=== PATIENT | female | born 1940 | race African-American/Black ===

== ENCOUNTER 2019-02-24 12:35 | Inpatient (IN) ==
[2019-02-24] MEDS ORDERED: 0.9 % Sodium Chloride 1,000 ML IVC ONE (13:11)
[2019-02-24 13:40] LABS: Basophils % 0.2 %; Hematocrit 20.5 % (35.3-44.9); Hemoglobin 6.7 g/dL (11.5-15.4); Immature Granulocytes % 1.3 % (0-4); Lymphocytes # 2.1 K/mcL (0.6-4.6); Lymphocytes % 13.5 %; Mean Corpuscular HGB Conc 32.7 g/dL (31.6-35.5); Mean Corpuscular Hemoglobin 30.5 pg (28.0-33.3); Mean Corpuscular Volume 93.2 fL (83.0-100.0); Mean Platelet Volume 9.6 fL (9.4-12.4); Monocytes % 6.3 %; Neutrophils # 12.5 K/mcL (1.6-8.9); Nucleated Red Blood Cells 0.1 /100 WBC (0); Platelet Count 407 K/mcL (140-400); Red Cell Distribution Width 13.9 % (11.5-14.5); Segmented Neutrophils % 78.7 %; White Blood Count 15.8 K/mcL (4.3-11.1)
[2019-02-24 13:59] LABS: BUN/Creatinine Ratio 43 (6-26); Blood Urea Nitrogen 59 mg/dL (8-23); Calcium 8.7 mg/dL (8.6-10.3); Carbon Dioxide 25 mEq/L (23-29); Chloride 102 mEq/L (98-107); Glucose 169 mg/dL (70-105); Osmolality,Calculated 312 (280-300); Sodium 141 mEq/L (136-145); Troponin I < 0.03 ng/mL (< 0.04); eGFR For African Americans 46 (> 60); eGFR For Non-African Americans 38 (> 60)
--- NOTE | 2019-02-24 14:17 | Emergency Department Note ---
Disposition Clinical Impression: Low hemoglobin, Upper GI bleed, LIVE (acute kidney injury) Disposition: Admitted As Inpatient Condition: Fair Referrals: Cynthia Severino, TRANSFORMATION ANALYST [Advanced Practice Nurse] - Forms: ED Satisfaction Letter Time of Disposition: 15:30 General Adult HPI - General Chief complaint: ED Dizziness Stated complaint: Hypotension,High HR Time Seen by Provider: 02/24/19 12:38 Source: patient, family Mode of arrival: ambulatory Limitations: no limitations Nursing Notes Reviewed: Yes Vital Signs Reviewed: Yes - History of Present Illness HPI Narrative: 78-year-old female presents to the emergency department with high heart rate and low blood pressure. Says she was at a friend's house to check the blood pressure was below 100 so they told to come here for evaluation. Says she has had mild chest pain been going on for a few weeks as well as mild shortness of breath that comes and goes. Not currently having chest pain or shortness of breath at this time. She does not feels weak and tired. Yesterday she says she was working outside could have been a little dehydrated she does not drink very much water. There is no fevers chills. No other complaints at this time. Pain Scale: 0 - Related Data Home Medications Medication Instructions Recorded Confirmed Gabapentin [Neurontin] 300 mg PO QID 02/24/19 02/24/19 Lisinopril [Zestril] 10 mg PO DAILY 02/24/19 02/24/19 Naproxen [EC-Naproxen] 500 mg PO Q12HR 02/24/19 02/24/19 Tizanidine HCl 2 mg PO TID PRN 02/24/19 02/24/19 hydroCHLOROthiazide 25 mg PO DAILY 02/24/19 02/24/19 [Hydrochlorothiazide] Allergies Allergy/AdvReac Type Severity Reaction Status Date / Time No Known Allergies Allergy Verified 09/12/17 13:58 All systems ED: reviewed and negative except as stated. Review of Systems: As Per HPI Past Medical History - Past Medical History Attestation: Yes The following information was validated with the patient. Source: patient Medical history: Reports: hypertension, RA, other Surgical history: Reports: breast surgery, hysterectomy Psychiatric history: Reports: no psych history - Social History Smoking Status: Never smoker Smokeless Tobacco Status: No Alcohol use: Reports: none Drug use: Reports: none Physical Exam - General Limitations: no limitations General appearance: alert, in no apparent distress - Head Head exam: atraumatic, normocephalic, normal inspection - Eye Eye exam: Present: normal appearance, PERRL, EOMI - ENT ENT exam: normal exam, normal oropharynx, mucous membranes moist - Neck Neck exam: Present: normal inspection, full ROM, trachea midline - Chest Chest inspection: Present: normal inspection, symmetric chest wall rise - Respiratory Respiratory exam: Present: normal lung sounds bilaterally - Cardiovascular Cardiovascular exam: Present: regular rate, normal rhythm, normal heart sounds - Abdominal Exam Abdominal exam: Present: soft, Non-Tender, normal bowel sounds. Absent: tenderness, distention, guarding, rebound, rigidity - Extremities Exam Extremities exam: Present: normal inspection, full ROM. Absent: tenderness, pedal edema - Back Exam Back exam: Present: normal inspection, full ROM. Absent: tenderness - Neurological Exam Neurological exam: Present: alert, oriented X3 - Skin Skin exam: Present: warm, dry, intact, normal color Course Course Narrative: We will give patient IV fluids for possible dehydration EKG chest x-ray troponin CBC BMP. We will send rectal exam she said she did have one episode of bloody stools that occurred today. The since then she has not had any. Otherwise has no other complaints. Last had a colonoscopy within the last 6 months that was normal. Vital Signs Temperature 98.3 F 02/24/19 12:36 Pulse Rate 103 02/24/19 12:36 Respiratory Rate 16 02/24/19 12:36 Blood Pressure 91/56 02/24/19 12:36 O2 Sat by Pulse Oximetry 98 02/24/19 12:36 Temperature 98.3 F 02/24/19 12:49 Pulse Rate 93 02/24/19 12:49 Respiratory Rate 18 02/24/19 12:49 Blood Pressure 112/82 02/24/19 12:49 O2 Sat by Pulse Oximetry 98 02/24/19 12:49 Oxygen Delivery Oxygen Delivery Room Air Medical Decision Making - MDM Narrative Medical decision making narrative: Patient's labs came back showing a low hemoglobin of 6.7. Hemoccult was positive. Patient was likely is not up her GI bleed ordered patient 2 units of red blood cells. Did give her Protonix. Patient had a mild LIVE with cr of 1.23 also for dehydration did receive 1 L of IV fluids. Patient will be admitted to the hospitalist for further evaluation of her upper GI bleed. I did review last endoscopy which was done in July only showing polyps and diverticulosis no signs diverticulitis. Patient is admitted to the hospitalist service in stable condition I spoke with Dr. Alvarez Chest X-Ray 02/24/19 14:07 IMPRESSION: No acute process. D/ / Kavon Kaiser MD / Kavon Kaiser MD Interpreting Provider: Kavon Kaiser MD - Medical Records Medical records reviewed: Yes I reviewed the patient's medical records. - Lab Data Lab results reviewed: Yes I reviewed the patient's lab results. Result diagrams: 02/24/19 13:21 02/24/19 13:21 Lab Results 02/24/19 02/24/19 02/24/19 Range/Units 13:21 13:21 14:20 WBC 15.8 H (4.3-11.1) K/mcL RBC 2.20 L (3.82-4.97) M/mcL Hgb 6.7 L (11.5-15.4) g/dL Hct 20.5 L (35.3-44.9) % MCV 93.2 (83.0-100.0) fL MCH 30.5 (28.0-33.3) pg MCHC 32.7 (31.6-35.5) g/dL RDW 13.9 (11.5-14.5) % Plt Count 407 H (140-400) K/mcL MPV 9.6 (9.4-12.4) fL Immature Gran % 1.3 (0-4) % Seg Neutrophils % 78.7 % Lymphocytes % 13.5 % Monocytes % 6.3 % Eosinophils % 0.0 % Basophils % 0.2 % Neutrophils # 12.5 H (1.6-8.9) K/mcL Lymphocytes # 2.1 (0.6-4.6) K/mcL Monocytes # 1.0 (0.0-1.3) K/mcL Eosinophils # 0.0 (0.0-0.6) K/mcL Basophils # 0.0 (0.0-0.2) K/mcL Nucleated RBCs/100 WBC 0.1 H (0) /100 WBC Sodium 141 (136-145) mEq/L Potassium 4.0 (3.5-5.1) mEq/L Chloride 102 (98-107) mEq/L Carbon Dioxide 25 (23-29) mEq/L BUN 59 H (8-23) mg/dL Creatinine 1.36 H (0.60-1.20) mg/dL Est GFR ( Amer) 46 L (> 60) Est GFR (Non-Af Amer) 38 L (> 60) BUN/Creatinine Ratio 43 H (6-26) Glucose 169 H (70-105) mg/dL Calculated Osmolality 312 H (280-300) Calcium 8.7 (8.6-10.3) mg/dL Total Bilirubin 0.3 (0.3-1.0) mg/dL Direct Bilirubin 0.1 (0.0-0.2) mg/dL Indirect Bilirubin 0.2 (0.0-1.2) mg/dL AST 13 (13-39) Units/L ALT 10 (7-52) Units/L Alkaline Phosphatase 53 (34-104) Units/L Troponin I < 0.03 (< 0.04) ng/mL Serum Total Protein 5.7 L (6.4-8.9) g/dL Albumin 3.6 (3.5-5.7) g/dL Globulin 2.1 L (2.4-3.5) g/dL Albumin/Globulin Ratio 1.7 (1.1-2.2) Stool Occult Bld Scrn Positive A (Negative) - Radiology Data Radiology results reviewed: Yes I reviewed the patient's radiology results. - EKG Data EKG #1 EKG attestation: Yes I reviewed and interpreted this EKG. EKG results narrative: EKG done at 1245 review myself and the attending shows sinus rhythm at a rate of 92, para 160, QRS 86, QTC 446. Is no acute ST changes no acute T-wave changes no other signs of ischemia. No signs of hypertrophy, heart, heart block. No WPW/Brugada/HOCM. No old EKG to compare with
[2019-02-24] MEDS ORDERED: Pantoprazole 40 MG VIAL IVP ONE (14:27)
[2019-02-24 14:57] LABS: Alanine Aminotransferase 10 Units/L (7-52); Albumin 3.6 g/dL (3.5-5.7); Albumin/Globulin Ratio 1.7 (1.1-2.2); Alkaline Phosphatase 53 Units/L (34-104); Aspartate Amino Transferase 13 Units/L (13-39); Bilirubin,Direct 0.1 mg/dL (0.0-0.2); Bilirubin,Indirect 0.2 mg/dL (0.0-1.2); Bilirubin,Total 0.3 mg/dL (0.3-1.0); Globulin 2.1 g/dL (2.4-3.5); Total Protein 5.7 g/dL (6.4-8.9)
--- NOTE | 2019-02-24 15:27 | Emergency Department Note ---
Disposition Clinical Impression: GI bleed Qualifiers: GI bleed type/associated pathology: unspecified gastrointestinal hemorrhage type Qualified Code(s): K92.2 - Gastrointestinal hemorrhage, unspecified Disposition: Admitted As Inpatient Condition: Good Forms: ED Satisfaction Letter Time of Disposition: 15:28 General Adult HPI - General Chief complaint: ED Dizziness Stated complaint: Hypotension,High HR Time Seen by Provider: 02/24/19 12:38 Source: patient, family Mode of arrival: ambulatory Limitations: no limitations - History of Present Illness Pain Scale: 0 - Related Data Home Medications Medication Instructions Recorded Confirmed Gabapentin [Neurontin] 300 mg PO QID 02/24/19 02/24/19 Lisinopril [Zestril] 10 mg PO DAILY 02/24/19 02/24/19 Naproxen [EC-Naproxen] 500 mg PO Q12HR 02/24/19 02/24/19 Tizanidine HCl 2 mg PO TID PRN 02/24/19 02/24/19 hydroCHLOROthiazide 25 mg PO DAILY 02/24/19 02/24/19 [Hydrochlorothiazide] Allergies Allergy/AdvReac Type Severity Reaction Status Date / Time No Known Allergies Allergy Verified 09/12/17 13:58 Past Medical History - Past Medical History Medical history: Reports: hypertension, RA, other Surgical history: Reports: breast surgery, hysterectomy Psychiatric history: Reports: no psych history - Social History Smoking Status: Never smoker Smokeless Tobacco Status: No Alcohol use: Reports: none Drug use: Reports: none Physical Exam - General Limitations: no limitations General appearance: alert, in no apparent distress Course Vital Signs Temperature 98.3 F 02/24/19 12:36 Pulse Rate 103 02/24/19 12:36 Respiratory Rate 16 02/24/19 12:36 Blood Pressure 91/56 02/24/19 12:36 O2 Sat by Pulse Oximetry 98 02/24/19 12:36 Temperature 98.3 F 02/24/19 12:49 Pulse Rate 93 02/24/19 12:49 Respiratory Rate 18 02/24/19 12:49 Blood Pressure 112/82 02/24/19 12:49 O2 Sat by Pulse Oximetry 98 02/24/19 12:49 Oxygen Delivery Oxygen Delivery Room Air Medical Decision Making - Lab Data Result diagrams: 02/24/19 13:21 02/24/19 13:21 Lab Results 02/24/19 02/24/19 02/24/19 Range/Units 13:21 13:21 14:20 WBC 15.8 H (4.3-11.1) K/mcL RBC 2.20 L (3.82-4.97) M/mcL Hgb 6.7 L (11.5-15.4) g/dL Hct 20.5 L (35.3-44.9) % MCV 93.2 (83.0-100.0) fL MCH 30.5 (28.0-33.3) pg MCHC 32.7 (31.6-35.5) g/dL RDW 13.9 (11.5-14.5) % Plt Count 407 H (140-400) K/mcL MPV 9.6 (9.4-12.4) fL Immature Gran % 1.3 (0-4) % Seg Neutrophils % 78.7 % Lymphocytes % 13.5 % Monocytes % 6.3 % Eosinophils % 0.0 % Basophils % 0.2 % Neutrophils # 12.5 H (1.6-8.9) K/mcL Lymphocytes # 2.1 (0.6-4.6) K/mcL Monocytes # 1.0 (0.0-1.3) K/mcL Eosinophils # 0.0 (0.0-0.6) K/mcL Basophils # 0.0 (0.0-0.2) K/mcL Nucleated RBCs/100 WBC 0.1 H (0) /100 WBC Sodium 141 (136-145) mEq/L Potassium 4.0 (3.5-5.1) mEq/L Chloride 102 (98-107) mEq/L Carbon Dioxide 25 (23-29) mEq/L BUN 59 H (8-23) mg/dL Creatinine 1.36 H (0.60-1.20) mg/dL Est GFR ( Amer) 46 L (> 60) Est GFR (Non-Af Amer) 38 L (> 60) BUN/Creatinine Ratio 43 H (6-26) Glucose 169 H (70-105) mg/dL Calculated Osmolality 312 H (280-300) Calcium 8.7 (8.6-10.3) mg/dL Total Bilirubin 0.3 (0.3-1.0) mg/dL Direct Bilirubin 0.1 (0.0-0.2) mg/dL Indirect Bilirubin 0.2 (0.0-1.2) mg/dL AST 13 (13-39) Units/L ALT 10 (7-52) Units/L Alkaline Phosphatase 53 (34-104) Units/L Troponin I < 0.03 (< 0.04) ng/mL Serum Total Protein 5.7 L (6.4-8.9) g/dL Albumin 3.6 (3.5-5.7) g/dL Globulin 2.1 L (2.4-3.5) g/dL Albumin/Globulin Ratio 1.7 (1.1-2.2) Stool Occult Bld Scrn Positive A (Negative) Attestation Statement - Attestation Attestation: I reviewed the residents documentation and agree with the residents assessment and plan of care. I have personally had face to face time with the patient. (Brief History, Brief Exam, and MDM) I personally supervised and was present for the martinez/critical portions of the following procedures completed by the resident: EKG 78 year old female presents to the ED with complaiints of hypotension and tahcyardia and waekness and rectal bleeding. It appears that she has a hgb leve of 6.7 which is neew and her last colonscopy and EGD was done by Dr. Toussaint a few years ago that showed divertulisis without polyps or idverticulitis. Uriel was asked to followu in 5 years secodary to the family history of colon cancer. Emeli will be transfused 2 units and admitted to [facility] as her hemoccult is positive
[2019-02-24 15:33] LABS: Bacteria,Urine None Seen per hpf (None-Few); Bilirubin,Urine Negative (Negative); Blood,Urine Large (Negative); Clarity,Urine Clear (Clear); Color,Urine Yellow (Yellow); Glucose,Urine (UA) Normal (Normal); Hyaline Casts,Urine None Seen per lpf (None-Few); Ketones,Urine Negative (Negative); Leukocyte Esterase,Urine Trace (Negative); Nitrite,Urine Negative (Negative); PH,Urine 6.5 pH Units (5.0-8.0); Protein,Urine Negative (Neg-Trace); Specific Gravity,Urine 1.015 (1.010-1.025); Squamous Epithelial Cell,Urine Few per lpf (None-Few); Urobilinogen,Urine Normal (Normal); WBC,Urine 0-3 per hpf (0-3)
[2019-02-24] MEDS ORDERED: Naloxone 0.4 MG/ML INJ IVP PRN (17:09)
[2019-02-24] MEDS ORDERED: Ondansetron 4 MG/2 ML VIAL IVP PRN (17:09)
--- NOTE | 2019-02-24 17:31 | Internal Med History&Physical ---
Date of Encounter: 02/24/19 Time of Encounter: 16:45 Internal Medicine - H&P: HPI Chief complaint: Dizziness, hypotension Admitted From: Emergency Dept Plans for Post Hospital Care: Home History of present illness: Ms. Casper is a 78 year old female with a past medical history of hypertension and rheumatoid arthritis diverticulosis history of colonic polyps with tubular adenoma 05/2011 she presented to be evaluated at the ED for dehydration. The patient reports multiple episodes of coffee-ground emesis as well as melenic stools with diarrhea all day Tuesday that subsided earlier this morning. She initially stated that she was having gross hematuria but denies any prior episodes of gross hematuria. She stated that she started feeling dizzy lightheaded and felt her heart was racing as such she went to a friend's house to check her blood pressure and the pressure was low with systolic in the 100s. Patient recent colonoscopy was in July 2018 which revealed diverticulosis in the entire colon. She denies any use of [id number] NSAIDs however noted to have prescription naproxen on a med list. She denies prior history of gastric ulcers or esophageal varices. At the ED she was noted to have a he moglobin of 6.7 according to prior CBC, hemoglobin was 12.2 in September 2018. Among her workup was unremarkable BMP except for high BUN to serum creatinine ratio indicative of GI bleed and acute kidney injury. Her LFTs were unremarkable with normal levels of total, direct and indirect bilirubin. Uri nalysis was significant for large blood and negative for nitrites and trace leukocytes esterase. Patient denies any dysuria or flank pain or history of kidney stones. She did mention to the ED staff that yesterday she was walking outside and had little what other drink but otherwise denies any strenuous activity. Past Med Surg Social Fam HX - Past Medical History Medical history: hypertension, RA, other Additional medical history: Von willebrand, diverticulosis, history of colon polyps Psychiatric history: no psych history - Past Surgical History Surgical History: breast surgery, hysterectomy Additional surgical history: bladder suspension and right breast biopsy, EGD, colonoscopy, back surgery - Social History Smoking Status: Never smoker Smokeless Tobacco Status: No Alcohol use: none Drug use: none Internal Medicine - H&P: Meds Gabapentin [Neurontin] 300 mg PO QID 02/24/19 [History] Lisinopril [Zestril] 10 mg PO DAILY 02/24/19 [History] Naproxen [EC-Naproxen] 500 mg PO Q12HR 02/24/19 [History] Tizanidine HCl 2 mg PO TID PRN 02/24/19 [History] hydroCHLOROthiazide [Hydrochlorothiazide] 25 mg PO DAILY 02/24/19 [History] Allergy/AdvReac Type Severity Reaction Status Date / Time No Known Allergies Allergy Verified 09/12/17 13:58 All Systems PM: A 10-system review of systems was performed and is negative for pertinent findings except as documented above in the HPI. Review of systems: GENERAL: Denies fever, chills, fatigue or night sweats. DERMATOLOGIC: Denies itch, rash or lesions HEENT: Reports headache, blurriness, but denies diplopia or decreased visual acuity, ear pain, tinnitus, rhinorrhea, sinus tenderness or sore throat RESPIRATORY: Denies SOB, cough, hemoptysis or pleuritic chest pain CARDIOVASCULAR: Denies chest pain, LE edema, palpitation or syncope GASTRO INTESTINAL: Denies cramps, but reports hematemesis and melena MUSCULOSKELATAL: Denies muscle pain but admits to weakness PSYCH: Denies worsening anxiety, or depression NEURO: Reports dizziness lightheadedness. Denies ataxia GENITURINARY: Denies dysuria, nocturia or urinary incontinence - Constitutional Vitals: Temp Pulse Resp BP Pulse Ox 99.0 F 89 14 116/51 91 02/24/19 16:20 02/24/19 16:20 02/24/19 16:20 02/24/19 16:20 02/24/19 16:20 Exam: GENERAL: NAD, A&O x3, pleasant and conversant SKIN: No skin lesions or rashes, non-jaundiced EYES: EOMI, PERRLA, no sclera icterus HENT: Head atraumatic, no facial asymmetry, frontal and maxillary sinus non- tender, normal hearing, oropharynx and mucosa dry and without any exudates NECK: No cervical lymphadenopathy, trachea midline, thyroid is palpable does not appear enlarged LUNGS: vesicular breath sounds, clear to auscultation, no wheeze, rhonchi, rales or crackles. Non labored respirations HEART: Normal rate and rhythm, no murmurs or rubs ABDOMEN: soft, non-tender, non-distended, bowel sounds x 4 normoactive EXTRMITIES: No LE asymmetry, No LE edema, pedal pulses 1+ and radial pulses 2 + and equal bilaterally NEURO: Speech and comprehension appears intact. PSYCH: Cooperative, non- anxious or irritable, mood and affect is appropriate Internal Med - H&P Results - Labs CBC & Chem 7: 02/24/19 13:21 02/24/19 13:21 Labs: Short CBC 02/24/19 Range/Units 13:21 WBC 15.8 H (4.3-11.1) K/mcL Hgb 6.7 L (11.5-15.4) g/dL Hct 20.5 L (35.3-44.9) % Plt Count 407 H (140-400) K/mcL Neutrophils # 12.5 H (1.6-8.9) K/mcL BMP 02/24/19 13:21 Sodium 141 Potassium 4.0 Chloride 102 Carbon Dioxide 25 BUN 59 H Creatinine 1.36 H Glucose 169 H Calcium 8.7 Cardiac Enzymes 02/24/19 Range/Units 13:21 Troponin I < 0.03 (< 0.04) ng/mL Liver Function 02/24/19 Range/Units 13:21 Total Bilirubin 0.3 (0.3-1.0) mg/dL Direct Bilirubin 0.1 (0.0-0.2) mg/dL AST 13 (13-39) Units/L ALT 10 (7-52) Units/L Alkaline Phosphatase 53 (34-104) Units/L Albumin 3.6 (3.5-5.7) g/dL Urine 02/24/19 Range/Units 15:13 Urine Color Yellow (Yellow) Urine Clarity Clear (Clear) Urine pH 6.5 (5.0-8.0) pH Units Ur Specific [place] 1.015 (1.010-1.025) Urine Protein Negative (Neg-Trace) mg/dL Urine Glucose (UA) Normal (Normal) mg/dL - Impressions ITS Impressions Chest X-Ray 02/24/19 14:07 IMPRESSION: No acute process. D/ / Kavon Kaiser MD / Kavon Kaiser MD Interpreting Provider: Kavon Kaiser MD - Assessment and Plan (1) GI bleed Current Visit: Yes Status: Acute Assessment and plan: likely underlying diverticular bleed although with NSAID use by GI bleed from gastric ulcer is high on differentiatial. We will treat with Protonix IV twice a day monitor H&H and clinically correlate she had a colonoscopy in July 2018. She does admit to melena and coffee-ground emesis there is also concern for painless hematuria Qualifiers: GI bleed type/associated pathology: unspecified gastrointestinal hemorrhage type Qualified Code(s): K92.2 - Gastrointestinal hemorrhage, unspecified (2) Acute blood loss anemia Current Visit: Yes Status: Acute Assessment and plan: Hemoglobin on presentation was 6.7 patient reports having coffee ground emesis, melenic stools as well as hematuria all day yesterday. Upon review of her prior labs hemoglobin on September 2018 was 12.2, she does have a history of diverticulosis in her entire colon based on colonoscopy from a July 2018 hence there might be elements acute on chronic blood loss for she is relatively stable with regard to her vitals and mentation. She has been ordered 2 units of packed red blood cells at the ED, trend H&H and stool Guaiac (3) LIVE (acute kidney injury) Current Visit: Yes Status: Acute Assessment and plan: Likely prerenal from hypovolemia due to acute GI hemorrhage. Urinalysis revealed large blood, CPK ordered to rule out rhabdomyolysis she has been transfused blood minute to volume replete tomorrow if she does not improve with blood transfusion (4) Hypovolemia dehydration Current Visit: Yes Status: Acute Assessment and plan: Secondary to acute blood loss she has currently been transfused 2 units of packed red blood cell will monitor on telemetry (5) Diverticulosis Current Visit: Yes Status: Acute Assessment and plan: This was evident in patient's history as well as recent colonoscopy from July 2018 diverticular bleed is high on the differential although she denies hematochezia (6) Painless hematuria Current Visit: Yes Status: Acute Assessment and plan: UA revealed large blood with 5-15 RBCs. We will check CPK to rule out rhabdo since she has presented with LIVE. Would also work patient up for painless hematuria with CT abdomen and pelvis (7) DVT prophylaxis Current Visit: Yes Status: Acute Assessment and plan: SCDs concern for active bleed - Time Spent With Patient Total time spent is greater than 50% in coordination of care (as documented) at patient's floor/unit and/or counseling patient:
[2019-02-24 17:40] LABS: Hematocrit 17.3 % (35.3-44.9)
[2019-02-24 18:07] LABS: Creatine Kinase 53 Units/L (30-223)
[2019-02-24] MEDS ORDERED: 0.9 % Sodium Chloride 250 ML ONE ×2 (18:19→21:58)
[2019-02-24] MEDS: Pantoprazole 40 MG VIAL IVP SCH (18:23)
[2019-02-24] MEDS: Gabapentin 300 MG CAPSULE PO SCH (20:05)
[2019-02-24] MEDS ORDERED: tiZANidine 4 MG TABLET PO PRN (21:05)
[2019-02-24] MEDS ORDERED: 0.9 % Sodium Chloride 500 ML IVC ONE (22:21)
[2019-02-24] MEDS ORDERED: 0.9 % Sodium Chloride 500 ML ONE (22:23)
[2019-02-24] MEDS ORDERED: 0.9 % Sodium Chloride 500 ML IVC STA (23:19)
[2019-02-24 23:56] LABS: Hematocrit 16.8 % (35.3-44.9)
[2019-02-25 00:02] LABS: Hemoglobin 5.8 g/dL (11.5-15.4)
[2019-02-25] MEDS ORDERED: 0.9 % Sodium Chloride 250 ML ONE (02:57)
[2019-02-25] MEDS: Pantoprazole 40 MG VIAL IVP SCH ×2 (05:48→17:47)
[2019-02-25 06:39] LABS: Basophils % 0.4 %; Eosinophils % 0.4 %; Hematocrit 23.7 % (35.3-44.9); Hemoglobin 8.1 g/dL (11.5-15.4); Immature Granulocytes % 0.9 % (0-4); Lymphocytes # 2.7 K/mcL (0.6-4.6); Lymphocytes % 28.9 %; Mean Corpuscular HGB Conc 34.2 g/dL (31.6-35.5); Mean Corpuscular Hemoglobin 30.9 pg (28.0-33.3); Mean Corpuscular Volume 90.5 fL (83.0-100.0); Mean Platelet Volume 9.2 fL (9.4-12.4); Monocytes # 1.1 K/mcL (0.0-1.3); Monocytes % 11.3 %; Neutrophils # 5.4 K/mcL (1.6-8.9); Platelet Count 296 K/mcL (140-400); Red Blood Count 2.62 M/mcL (3.82-4.97); Red Cell Distribution Width 13.7 % (11.5-14.5); Segmented Neutrophils % 58.1 %; White Blood Count 9.3 K/mcL (4.3-11.1)
[2019-02-25 06:59] LABS: Magnesium 2.1 mg/dL (1.6-2.6)
[2019-02-25] MEDS: Gabapentin 300 MG CAPSULE PO SCH ×4 (08:50→21:23)
[2019-02-25] MEDS: D5% in Lactated Ringers 1,000 ML IVC SCH ×2 (08:51→21:26)
--- NOTE | 2019-02-25 17:40 | Internal Med Progress Note ---
Hospitalist Progress Note - Encounter Date of Encounter: 02/25/19 Time of Encounter: 08:55 - Subjective Interval History: Ms Casper denies any further episodes of melena or hematemesis. She has no denies any episodes hematuria this was confirmed by her nurse GEN: Denies fever, chills or malaise HEENT: Denies headache blurriness, or dysphagia RESP: Denies SOB or cough CV: Denies chest pain or palpitations GI: Denies Nausea, vomiting, diarrhea or constipation Reviewed current in hospital medications with modifications see orders Reviewed Routine labs - Exam Vitals: Temp Pulse Resp BP Pulse Ox 99.2 F 77 17 127/71 94 02/25/19 15:51 02/25/19 15:51 02/25/19 15:51 02/25/19 15:51 02/25/19 15:51 Exam: GEN: NAD, A&O x 3, Pleasant and conversant SKIN: brown but pale warm acyanotic not jaundice HEART: RRR, no murmurs LUNGS: CTA no wheeze or crackles, overall non labored ABDOMEN; Soft, non tender or distended, BS x 4 normactive EXT: No LE edema, Pedal pulses 1+, radial pulses 2+ PSYCH: Mood and affect is appropriate - Assessment and Plan (1) GI bleed Current Visit: Yes Status: Acute Assessment and Plan: No for the episode of hematemesis, or melena, hemoglobin is stable 8.1 status post 3 units packed red blood cell vitals stable, we will make an by mouth after midnight Consult prison warden likely underlying diverticular bleed although with NSAID use by GI bleed from gastric ulcer is high on differentiatial. We will treat with Protonix IV twice a day monitor H&H and clinically correlate she had a colonoscopy in July 2018. She does admit to melena and coffee-ground emesis there is also concern for painless hematuria (2) Acute blood loss anemia Current Visit: Yes Status: Acute Assessment and Plan: Status post 3 units hemoglobin is 8.1 patient denies any further episode of hematemesis melena or hematochezia hematuria. CT abdomen and pelvis was unrema rkable patient will be evaluated by prison warden tomorrow Hemoglobin on presentation was 6.7 patient reports having coffee ground emesis, melenic stools as well as hematuria all day yesterday. Upon review of her prior labs hemoglobin on September 2018 was 12.2, she does have a history of diverti culosis in her entire colon based on colonoscopy from a July 2018 hence there might be elements acute on chronic blood loss for she is relatively stable with regard to her vitals and mentation. She has been ordered 2 units of packed red blood cells at the ED, trend H&H and stool Guaiac (3) LIVE (acute kidney injury) Current Visit: Yes Status: Acute Assessment and Plan: Likely prerenal from hypovolemia due to acute GI hemorrhage. Urinalysis revealed large blood, CPK ordered was normal no rhabdomyolysis resolved likely due to hypovolemia from her bleed (4) Hypovolemia dehydration Current Visit: Yes Status: Acute Assessment and Plan: Secondary to acute blood loss she has currently been transfused 2 units of packed red blood cell will monitor on telemetry, she required additional unit of blood, now normotensive we will continue maintenance fluids (5) Diverticulosis Current Visit: Yes Status: Acute Assessment and Plan: This was evident in patient's history as well as recent colonoscopy from 2018 diverticular bleed is high on the differential although she denies hematochezia (6) Painless hematuria Current Visit: Yes Status: Acute Assessment and Plan: UA revealed large blood with 5-15 RBCs. We will check CPK normal no rhabdo. Would also work patient up for painless hematuria with CT abdomen and pelvis also remarkable with no acute abdomen parenchyma abnormality no renal calculus OBSTRUCTION confirmed colonic diverticulosis (7) DVT prophylaxis Current Visit: Yes Status: Acute Assessment and Plan: SCDs concern for active bleed (8) Hepatic cyst Current Visit: Yes Status: Acute Assessment and Plan: Incidental finding on CT imaging of the abdomen and pelvis- Multiple hepatic low-attenuation lesions consistent with hepatic cysts are seen. For example, in the left hepatic lobe lateral segment, there is a 1.4 x 1.3 cm cyst. In the right hepatic lobe posteriorly, there is a 1.5 x 2.2 cm cyst. May need further evaluation as an outpatient - Time Spent with Patient Total time spent is greater than 50% in coordination of care (as documented) at patient's floor/unit and/or counseling patient: Internal Medicine: Result - Labs CBC & Chem 7: 02/25/19 06:28 02/25/19 06:28 Labs: Short CBC 02/24/19 02/24/1919 Range/Units 17:32 23:26 06:28 WBC 9.3 (4.3-11.1) K/mcL Hgb 6.0 L* 5.8 L* 8.1 L D (11.5-15.4) g/dL Hct 17.3 L 16.8 L 23.7 L (35.3-44.9) % Plt Count 296 (140-400) K/mcL Neutrophils # 5.4 (1.6-8.9) K/mcL BMP 02/24/19 02/25/19 13:21 06:28 Sodium 141 146 H Potassium 4.0 4.0 Chloride 102 112 H Carbon Dioxide 25 28 BUN 59 H 42 H Creatinine 1.36 H 1.16 Glucose 169 H 111 H Calcium 8.7 8.0 L Cardiac Enzymes 02/24/19 Range/Units 13:21 Troponin I < 0.03 (< 0.04) ng/mL Liver Function 02/24/19 Range/Units 13:21 Total Bilirubin 0.3 (0.3-1.0) mg/dL Direct Bilirubin 0.1 (0.0-0.2) mg/dL AST 13 (13-39) Units/L ALT 10 (7-52) Units/L Alkaline Phosphatase 53 (34-104) Units/L Albumin 3.6 (3.5-5.7) g/dL - Impressions Impressions Abdomen/Pelvis CT 02/25/19 08:19 IMPRESSION: 1. No acute abdominal or parenchymal abnormality. No urinary tract calculi or obstructive uropathy. 2. Colonic diverticulosis without acute inflammatory changes. 3. Multiple hepatic cysts present. D/ /25/2019 08:33:30 Johanna Albright MD / yumiko Interpreting Provider: Johanna Albright MD Consult Discharge Plan - Plan Referrals: Cynthia Severino, SUPERVISOR PHOSPHATIC FERTILIZER [Primary Care Provider] - (1) GI bleed Qualifiers: GI bleed type/associated pathology: unspecified gastrointestinal hemorrhage type Qualified Code(s): K92.2 - Gastrointestinal hemorrhage, unspecified
[2019-02-26 04:37] LABS: Basophils % 0.2 %; Eosinophils # 0.1 K/mcL (0.0-0.6); Eosinophils % 1.6 %; Hemoglobin 7.7 g/dL (11.5-15.4); Immature Granulocytes % 0.9 % (0-4); Lymphocytes # 2.9 K/mcL (0.6-4.6); Lymphocytes % 33.7 %; Mean Corpuscular HGB Conc 33.5 g/dL (31.6-35.5); Mean Corpuscular Hemoglobin 31.3 pg (28.0-33.3); Mean Corpuscular Volume 93.5 fL (83.0-100.0); Monocytes % 11.4 %; Neutrophils # 4.5 K/mcL (1.6-8.9); Nucleated Red Blood Cells 0.2 /100 WBC (0); Platelet Count 279 K/mcL (140-400); Red Blood Count 2.46 M/mcL (3.82-4.97); Red Cell Distribution Width 14.2 % (11.5-14.5); Segmented Neutrophils % 52.2 %; White Blood Count 8.5 K/mcL (4.3-11.1)
[2019-02-26] MEDS: D5% in Lactated Ringers 1,000 ML IVC SCH ×2 (04:47→16:25)
[2019-02-26 04:56] LABS: BUN/Creatinine Ratio 22 (6-26); Blood Urea Nitrogen 21 mg/dL (8-23); Calcium 7.9 mg/dL (8.6-10.3); Carbon Dioxide 25 mEq/L (23-29); Chloride 112 mEq/L (98-107); Glucose 107 mg/dL (70-105); Magnesium 1.8 mg/dL (1.6-2.6); Osmolality,Calculated 299 (280-300); Potassium 3.4 mEq/L (3.5-5.1); Sodium 143 mEq/L (136-145); eGFR For African Americans > 60 (> 60); eGFR For Non-African Americans 57 (> 60)
[2019-02-26] MEDS: Pantoprazole 40 MG VIAL IVP SCH ×2 (06:00→17:40)
[2019-02-26] MEDS: Gabapentin 300 MG CAPSULE PO SCH ×4 (08:29→20:37)
--- NOTE | 2019-02-26 10:35 | Gastroenterology Consult Note ---
<Juju Anthony - Last Filed: 02/26/19 10:32> Date of Encounter: 02/26/19 Time of Encounter: 09:40 - Assessment and plan (1) GI bleed Current Visit: Yes Status: Acute Assessment and plan: 78 year old female with a history of Von Willenbrand disease who presented with anemia and GI bleed. Will proceed with EGD today to rule out esophagitis, gastritis, duodenitis, PUD, Mw tear. May need colonoscopy tomorrow. Dr Bryson to determine after EGD. Continue PPI, monitor H&H, transfuse as needed. Will check iron levels. Qualifiers: GI bleed type/associated pathology: unspecified gastrointestinal hemorrhage type Qualified Code(s): K92.2 - Gastrointestinal hemorrhage, unspecified (2) Low hemoglobin Current Visit: Yes Status: Acute - Time Spent With Patient Total time spent is greater than 50% in coordination of care (as documented) at patient's floor/unit and/or counseling patient: GI History of Present Illness - Data of Consult Patient: new to practice Consult date: 02/26/19 Requesting Physician: Miguel Sandhu - Consult Narrative Reason for consult: gi bleed History of present illness: Ms. Casper is a 78 year old female with a past medical history of hyperte nsion, rheumatoid arthritis, diverticulosis, history of colonic polyps, Von Willenbrand Disease. She presented to be evaluated at the ED for dehydration. The patient reports she felt well on Tuesday morning, by mid afternoon she started vomiting. On Tuesday morning she was still feeling weak and tired, her daughter called to check on her and insisted she be checked out. She stated that she started feeling dizzy lightheaded and felt her heart was racing as such she went to a friend's house to check her blood pressure and the pressure was low with systolic in the 100s. She denies any use of [id number] NSAIDs however noted to have prescription naproxen on a med list. She denies prior hi story of gastric ulcers or esophageal varices. At the ED she was noted to have a hemoglobin of 6.7 according to prior CBC, hemoglobin was 12.2 in September 2018. Among her workup was unremarkable BMP except for high BUN to serum creatinine ratio indicative of GI bleed and acute kidney injury. Her LFTs were unremarkable with normal levels of total, direct and indirect bilirubin. Urinalysis was significant for large blood and negative for nitrites and trace leukocytes esterase. Patient denies any dysuria or flank pain or history of kidney stones. She denied any abdominal pain, gerd, diarrhea or seeing any bloody or tarry stools. However her daughter states when she got to her house, she found large blood stains on the carpet, all over her bathroom, on the front of the patients gown and on her pants. The patient states she does not remember any bleeding. NSAID: Naproxen Procedures: Colonoscopy by Dr. Toussaint Jul 1218. Diverticulosis, external hemorrhoids Past Med Surg Social Fam HX - Past Medical History Medical history: hypertension, RA, other Additional medical history: Von willebrand, diverticulosis, history of colon polyps Psychiatric history: no psych history - Past Surgical History Surgical History: breast surgery, hysterectomy Additional surgical history: bladder suspension and right breast biopsy, EGD, colonoscopy, back surgery - Social History Smoking Status: Former smoker Smokeless Tobacco Status: No Alcohol use: none Drug use: none Review of Systems: GI: as per [place] GENER[facility]: denies fever, has some chills EYES: denies yellow discoloration ENT: denies pain with swallowing or difficulty swallowing CARDIO: denies chest pain, palpitations RESP: No Shortness of breath with exertion : denies change in color of urine NEURO: weakness HEME: Denies any bruising MS: chronic joint pain DERM: denies rash or itching PSYCH: Denies history of anxiety or depression - Constitutional Vitals: Temp Pulse Resp BP Pulse Ox 98.3 F 69 15 122/66 97 02/26/19 07:13 02/26/19 07:13 02/26/19 07:13 02/26/19 07:13 02/26/19 07:13 Exam: CONSTITUTIONAL:alert, no acute distress.HEAD:normocephalic.EYES:no jaundice.NECK:no obvious swelling.HEART:regular rate and rhythm, no murmurs.LUNGS:bilateral good air entry.ABDOMEN:non distended, soft, non tender, no masses palpable, no organomegaly. RECTAL EXAM:Deferred.EXTREMITIES:no clubbing, cyanosis or edema.SKIN:no stigmata of chronic liver disease.NEUROLOGIC:no obvious focal defect. Results - Labs CBC & Chem 7: 02/26/19 04:05 02/26/19 04:05 Labs: Last Result 02/26/19 04:05 Calcium 7.9 L Entire Visit 02/26/19 04:05 Hgb 7.7 L Hct 23.0 L - Impressions Impressions Abdomen/Pelvis CT 02/25/19 08:19 IMPRESSION: 1. No acute abdominal or parenchymal abnormality. No urinary tract calculi or obstructive uropathy. 2. Colonic diverticulosis without acute inflammatory changes. 3. Multiple hepatic cysts present. D/ : / 02/25/2019 08:33:30 Johanna Albright MD / yumiko Interpreting Provider: Johanna Albright MD Consult Discharge Plan - Plan Referrals: Cynthia Severino, NODE JS DEVELOPER [Primary Care Provider] - <Alesha Bryson - Last Filed: 02/26/19 14:36> Date of Encounter: 02/26/19 Time of Encounter: 13:00 - Time Spent With Patient Total time spent is greater than 50% in coordination of care (as documented) at patient's floor/unit and/or counseling patient: GI History of Present Illness - Data of Consult Requesting Physician: Miguel Sandhu - Consult Narrative History of present illness: Ms. Casper is a 78 year old female - Constitutional Vitals: Temp Pulse Resp BP Pulse Ox 98.1 F 72 16 147/72 97 02/26/19 14:02 02/26/19 14:02 02/26/19 14:02 02/26/19 14:02 02/26/19 14:02 Results - Labs CBC & Chem 7: 02/26/19 04:05 02/26/19 04:05 Labs: Last Result 02/26/19 02/26/19 04:05 10:55 Calcium 7.9 L Iron 13 L % Saturation 4 L Transferrin 220 Ferritin 16 Entire Visit 02/26/19 02/26/19 04:05 10:55 Hgb 7.7 L Hct 23.0 L Ferritin 16 - Impressions Impressions Abdomen/Pelvis CT 09/15/19 08:19 IMPRESSION: 1. No acute abdominal or parenchymal abnormality. No urinary tract calculi or obstructive uropathy. 2. Colonic diverticulosis without acute inflammatory changes. 3. Multiple hepatic cysts present. D/ /25/2019 08:33:30 Johanna Albright MD / yumiko Interpreting Provider: Johanna Albright MD - Attending Attestation I have personally performed a face to face evaluation on this patient. I have reviewed and agree with the care plan. History and Exam by me shows: Patient seen. Denies any abdominal pain. Examination abdomen is benign assessment: Patient with the hematemesis and melena with anemia status post blood transfusion. Recommendation: EGD to rule out upper GI causes for her bleeding. Follow H&H
[2019-02-26 11:38] LABS: % Iron Saturation 4 % (15-50); Iron 13 mcg/dL (50-170); Transferrin 220 mg/dL (203-362)
[2019-02-26] MEDS ORDERED: Lidocaine -MPF 2% 2 ML VIAL ONE (11:43)
[2019-02-26] MEDS ORDERED: *HR* Propofol 200 MG/20 ML VIAL IVP ONE (11:43)
[2019-02-26 11:55] LABS: Ferritin 16 ng/mL (10-120)
--- NOTE | 2019-02-26 12:50 | Electrocardiograph Report ---
[address] [place], [place] [address] Test Date: 2019-02-24 Pat Name: Belgica Casper Department: EXAM1 Room: 3A32 Gender: F Electrolysis Engineer: : 1940 Requested By: Hubert Soriano Order Number: [id number] Reading MD: Andi Deleon Measurements Intervals [place] Rate: 92 P: 53 MN: 160 QRS: 54 QRSD: 86 T: 40 QT: 360 QTc: 446 Interpretive Statements Sinus rhythm left atrial enlargement Electronically Signed On 02-26-2019 12:48:38 EDT by Andi Deleon
--- NOTE | 2019-02-26 13:01 | Anesthesia Evaluation PreOp ---
Date of Encounter: 02/26/19 Time of Encounter: 12:58 (') - Past History Planned Operation: EGD Cardiac History: HTN, Other (von willebrand disease patient unsure of what type and does not require chronc treatment) Pulmonary History: Denies Any Significant HX CUSTOMER RESPONSE REPRESENTATIVE History: Denies Any Significant HX Other Medical History: Renal (LIVE), Other (RA, GI bleed) Anesthesia History: No Prior Anesthetic Complications, Past Anesthesia : No Alcohol Use: none Drug use: none Medications and Allergies Gabapentin [Neurontin] 300 mg PO QID 02/24/19 [History] Lisinopril [Zestril] 10 mg PO DAILY 02/24/19 [History] Naproxen [EC-Naproxen] 500 mg PO Q12HR 02/24/19 [History] Tizanidine HCl 2 mg PO TID PRN 02/24/19 [History] hydroCHLOROthiazide [Hydrochlorothiazide] 25 mg PO DAILY 02/24/19 [History] Allergy/AdvReac Type Severity Reaction Status Date / Time No Known Allergies Allergy Verified 09/12/17 13:58 - Meds/Allergy Pre-op Review Medications Reviewed: Yes Allergies Reviewed: Yes Beta Blockers on Current Med List: No Anesthesia Results - Labs 02/26/19 04:05 02/26/19 04:05 - Imaging EKG: report reviewed Anesthesia Exam Vital Signs/O2 Sat/Glucose, Most Recent Temp Pulse Resp BP Pulse Ox 98.5 F 72 14 132/68 97 02/26/19 10:40 02/26/19 10:40 02/26/19 10:40 02/26/19 10:40 02/26/19 10:40 Blood Glucose* 122 Weight: 68 kg NPO (# of Hours): > 8 hr - HEENT Pupil (Motor): Pupils equal Mallampati: II - CUSTOMER RESPONSE REPRESENTATIVE LOC: Oriented - Cardiac Rhythm: Regular Murmur: None - Pulmonary Breath Sounds: bilateral Clear Respiratory Effort: Symmetrical Anesthesia Assess/Plan ASA Score: 2 Level of consciousness: Cooperative, Oriented Anesthetic Plan: MAC Monitoring Plan: Standard Monitors Recovery Plan: PACU
[2019-02-26] MEDS ORDERED: Simethicone 40 MG/0.6 ML MLS IR ONE (13:10)
[2019-02-26] MEDS ORDERED: 0.9 % Sodium Chloride 500 ML IVC SCH (13:15)
--- NOTE | 2019-02-26 14:57 | Anesthesia Evaluation Post Op ---
Date of Encounter: 02/26/19 Time of Encounter: 14:56 - Vital Signs Vital Signs: Vital Signs/O2 Sat/Glucose, Most Recent Temp Pulse Resp BP Pulse Ox 98.1 F 72 16 147/72 97 02/26/19 14:02 02/26/19 14:02 02/26/19 14:02 02/26/19 14:02 02/26/19 14:02 Blood Glucose* 122 - Lungs Lungs: Clear Ascult./Percussion - Airway Airway: Non-obstructed - Cardiovascular Regular Rate - Mental Status Mental Status: Alert & Oriented, Answers Appropriately - Pain Pain Scale: 0 - Nausea Vomiting Nausea Vomiting: Not Present - Hydration Hydration: Tolerates oral liquids - Discharge PostOp Status: Transfer Patient to floor
--- NOTE | 2019-02-26 18:39 | Internal Med Progress Note ---
Hospitalist Progress Note - Encounter Date of Encounter: 02/26/19 Time of Encounter: 16:00 - Subjective Interval History: Ms Casper is status post EGD which according to the report she had a Barbara- Lora tear at the GE junction, many nonbleeding gastric ulcers, nonbleeding duodenal ulcer. GEN: Denies fever, chills or malaise HEENT: Denies headache blurriness, or dysphagia RESP: Denies SOB or cough CV: Denies chest pain or palpitations GI: Denies Nausea, vomiting, diarrhea or constipation Reviewed current in hospital medications with modifications see orders Reviewed Routine labs - Exam Vitals: Temp Pulse Resp BP Pulse Ox 98.1 F 72 16 147/72 97 02/26/19 14:02 02/26/19 14:02 02/26/19 14:02 02/26/19 14:02 02/26/19 14:02 Exam: GEN: NAD, A&O x 3, Pleasant and conversant SKIN: brown but pale warm acyanotic not jaundice HEART: RRR, no murmurs LUNGS: CTA no wheeze or crackles, overall non labored ABDOMEN; Soft, non tender or distended, BS x 4 normactive EXT: No LE edema, Pedal pulses 1+, radial pulses 2+ PSYCH: Mood and affect is appropriate - Assessment and Plan (1) GI bleed Current Visit: Yes Status: Acute Assessment and Plan: Status post EGD which revealed Barbara-Lora tear at the GE junction, nonbleeding gastric ulcers and nonbleeding ulcer. Hemoglobin today is 7.7, and a monitor and clinically correlate biopsy pending No for the episode of hematemesis, or melena, hemoglobin is stable 8.1 status post 3 units packed red blood cell vitals stable, we will make an by mouth after midnight Consult slip filler likely underlying diverticular bleed although with NSAID use by GI bleed from gastric ulcer is high on differentiatial. We will treat with Protonix IV twice a day monitor H&H and clinically correlate she had a colonoscopy in July 2018. She does admit to melena and coffee-ground emesis there is also concern for painless hematuria (2) Gastric ulcer Current Visit: Yes Status: Acute Assessment and Plan: Status post EGD history of chronic naproxen use biopsy pending rule out H. pylori and GI malignancy (3) Duodenal ulcer Current Visit: Yes Status: Acute Assessment and Plan: Status post EGD biopsy pending rule out H. pylori and gastric cancer, less likely ZES pt reports chronic NSAID use with naproxen (4) Barbara-Lora tear Current Visit: Yes Status: Acute Assessment and Plan: Likely the reason of her coffee-ground emesis status post EGD no further episodes (5) Acute blood loss anemia Current Visit: Yes Status: Acute Assessment and Plan: Status post EGD hemoglobin 7.7 Status post 3 units hemoglobin is 8.1 patient denies any further episode of hematemesis melena or hematochezia hematuria. CT abdomen and pelvis was unremarkable patient will be evaluated by slip filler tomorrow Hemoglobin on presentation was 6.7 patient reports having coffee ground emesis, melenic stools as well as hematuria all day yesterday. Upon review of her prior labs hemoglobin on September 2018 was 12.2, she does have a history of diverticulosis in her entire colon based on colonoscopy from a July 2018 hence there might be elements acute on chronic blood loss for she is relatively stable with regard to her vitals and mentation. She has been ordered 2 units of packed red blood cells at the ED, trend H&H and stool Guaiac (6) LIVE (acute kidney injury) Current Visit: Yes Status: Acute Assessment and Plan: Likely prerenal from hypovolemia due to acute GI hemorrhage. Urinalysis revealed large blood, CPK ordered was normal no rhabdomyolysis resolved likely due to hypovolemia from her bleed (7) Hypovolemia dehydration Current Visit: Yes Status: Acute Assessment and Plan: Secondary to acute blood loss she has currently been transfused 2 units of packed red blood cell will monitor on telemetry, she required additional unit of blood, now normotensive we will continue maintenance fluids (8) Diverticulosis Current Visit: Yes Status: Acute Assessment and Plan: This was evident in patient's history as well as recent colonoscopy from July 2018 diverticular bleed is high on the differential although she denies hematochezia (9) Painless hematuria Current Visit: Yes Status: Acute Assessment and Plan: UA revealed large blood with 5-15 RBCs. We will check CPK normal no rhabdo. Would also work patient up for painless hematuria with CT abdomen and pelvis a lso remarkable with no acute abdomen parenchyma abnormality no renal calculus OBSTRUCTION confirmed colonic diverticulosis (10) DVT prophylaxis Current Visit: Yes Status: Acute Assessment and Plan: SCDs concern for active bleed (11) Hepatic cyst Current Visit: Yes Status: Acute Assessment and Plan: Incidental finding on CT imaging of the abdomen and pelvis- Multiple hepatic low-attenuation lesions consistent with hepatic cysts are seen. For example, in the left hepatic lobe lateral segment, there is a 1.4 x 1.3 cm cyst. In the right hepatic lobe posteriorly, there is a 1.5 x 2.2 cm cyst. May need further evaluation as an outpatient (12) Iron deficiency anemia Current Visit: Yes Status: Acute Assessment and Plan: We will supplement with IV iron sucrose given a history of gastric ulcers not ideal candidate for oral iron supplementation - Time Spent with Patient Total time spent is greater than 50% in coordination of care (as documented) at patient's floor/unit and/or counseling patient: Internal Medicine: Result - Labs CBC & Chem 7: 02/26/19 04:05 02/26/19 04:05 Labs: Short CBC 02/26/19 Range/Units 04:05 WBC 8.5 (4.3-11.1) K/mcL Hgb 7.7 L (11.5-15.4) g/dL Hct 23.0 L (35.3-44.9) % Plt Count 279 (140-400) K/mcL Neutrophils # 4.5 (1.6-8.9) K/mcL BMP 02/26/19 04:05 Sodium 143 Potassium 3.4 L Chloride 112 H Carbon Dioxide 25 BUN 21 Creatinine 0.95 Glucose 107 H Calcium 7.9 L - Impressions Impressions Abdomen/Pelvis CT 02/25/19 08:19 IMPRESSION: 1. No acute abdominal or parenchymal abnormality. No urinary tract calculi or obstructive uropathy. 2. Colonic diverticulosis without acute inflammatory changes. 3. Multiple hepatic cysts present. D/ /25/2019 08:33:30 Johanna Albright MD / yumiko Interpreting Provider: Johanna Albright MD Consult Discharge Plan - Plan Referrals: Cynthia Severino, HOSPITAL CARRIER [Primary Care Provider] - (1) GI bleed Qualifiers: GI bleed type/associated pathology: unspecified gastrointestinal hemorrhage type Qualified Code(s): K92.2 - Gastrointestinal hemorrhage, unspecified (12) Iron deficiency anemia Qualifiers: Iron deficiency anemia type: chronic blood loss Qualified Code(s): D50.0 - Iron deficiency anemia secondary to blood loss (chronic)
[2019-02-26] MEDS: Iron Sucrose Complex 250 MG in 0.9 % Sodium Chloride 250 ML IVPB SCH (20:37)
[2019-02-26] MEDS ORDERED: Loratadine 10 MG TABLET PO ONE (22:20)
[2019-02-27 04:22] LABS: Basophils % 0.3 %; Eosinophils # 0.2 K/mcL (0.0-0.6); Eosinophils % 2.7 %; Hematocrit 23.4 % (35.3-44.9); Hemoglobin 7.9 g/dL (11.5-15.4); Immature Granulocytes % 0.8 % (0-4); Lymphocytes # 2.2 K/mcL (0.6-4.6); Lymphocytes % 28.9 %; Mean Corpuscular HGB Conc 33.8 g/dL (31.6-35.5); Mean Corpuscular Hemoglobin 31.5 pg (28.0-33.3); Mean Corpuscular Volume 93.2 fL (83.0-100.0); Mean Platelet Volume 8.9 fL (9.4-12.4); Monocytes # 0.9 K/mcL (0.0-1.3); Monocytes % 11.3 %; Neutrophils # 4.3 K/mcL (1.6-8.9); Nucleated Red Blood Cells 0.4 /100 WBC (0); Platelet Count 301 K/mcL (140-400); Red Blood Count 2.51 M/mcL (3.82-4.97); Red Cell Distribution Width 13.7 % (11.5-14.5); White Blood Count 7.6 K/mcL (4.3-11.1)
[2019-02-27 04:44] LABS: BUN/Creatinine Ratio 13 (6-26); Blood Urea Nitrogen 12 mg/dL (8-23); Calcium 7.8 mg/dL (8.6-10.3); Carbon Dioxide 21 mEq/L (23-29); Chloride 113 mEq/L (98-107); Glucose 94 mg/dL (70-105); Magnesium 1.7 mg/dL (1.6-2.6); Osmolality,Calculated 294 (280-300); Potassium 3.6 mEq/L (3.5-5.1); Sodium 142 mEq/L (136-145); eGFR For African Americans > 60 (> 60); eGFR For Non-African Americans 59 (> 60)
[2019-02-27] MEDS: Pantoprazole 40 MG VIAL IVP SCH (05:48)
[2019-02-27] MEDS: Gabapentin 300 MG CAPSULE PO SCH ×4 (09:59→20:20)
--- NOTE | 2019-02-27 09:59 | Gastroenterology Progress Note ---
Date of Encounter: 02/27/19 Time of Encounter: 09:55 - Assessment and plan (1) GI bleed Current Visit: Yes Status: Acute Assessment and plan: 78 year old female with a history of Von Willenbrand disease who presented with anemia and GI bleed Underwent EGD on 02/26/29 Denies any further episodes of hematemesis EGD showed gastritis Continue oral Protonix 40 mg twice a day for 2 weeks, transition to 40 mg daily for 2 weeks Please avoid NSAIDs outpatient Qualifiers: GI bleed type/associated pathology: unspecified gastrointestinal hemorrhage type Qualified Code(s): K92.2 - Gastrointestinal hemorrhage, unspecified (2) Iron deficiency anemia Current Visit: Yes Status: Acute Assessment and plan: Noted to have hemoglobin of 8.1 with MCV of 97.6 Iron levels decreased: 20 with percent saturation: 7; likely combination of iron deficiency anemia with GI bleed Old replaced with IV Venofer received a dose on 02/26/19 should receive second dose on 02/28/19 Can transition to oral ferrous sulfate outpatient Will check B12 and folate She should continue omeprazole for gastritis as well as avoiding NSAIDs to prevent further GI bleed Qualifiers: Iron deficiency anemia type: chronic blood loss Qualified Code(s): D50.0 - Iron deficiency anemia secondary to blood loss (chronic) - Time Spent With Patient Total time spent is greater than 50% in coordination of care (as documented) at patient's floor/unit and/or counseling patient: - Subjective Interval history: Ms. Casper was seen at bedside this morning. She was eating her breakfast and tolerated well. She was asking for more solid food. She is denying any further episodes of emesis. Additionally she is denying abdominal pain, nausea, fever, abdominal pain, chest pain or shortness of breath. - Constitutional Vitals: Temp Pulse Resp BP Pulse Ox 99.3 F 69 18 136/68 92 02/27/19 06:36 02/27/19 06:36 02/27/19 06:36 02/27/19 06:36 02/27/19 06:36 - Head Head exam: Present: atraumatic, normal inspection - Eye Eye exam: Present: EOMI, sclera anicteric. Absent: conjunctival injection - ENT ENT exam: Present: mucous membranes moist, normal oropharynx - Neck Neck exam general surgery: Present: full ROM, trachea midline - Respiratory Respiratory exam: Present: CTAB. Absent: rhonchi, wheezes - Cardiovascular Cardiovascular exam: Present: RRR, +S1, +S2 - GI/Abdominal GI/Abdominal exam: Present: normal bowel sounds, soft. Absent: distended, firm - Psychiatric Psychiatric exam: Present: normal affect, normal mood - Skin Skin exam: Present: dry, intact Results - Labs CBC & Chem 7: 02/27/19 03:43 02/27/19 03:43 Labs: Last Result 02/27/19 03:43 Calcium 7.8 L Entire Visit 02/27/19 03:43 Hgb 7.9 L Hct 23.4 L Consult Discharge Plan - Plan Referrals: Cynthia Severino, OXIDATION OPERATOR [Primary Care Provider] -
[2019-02-27 10:16] LABS: Folate > 22.3 ng/mL (3.0-16.0); Vitamin B12 1263 pg/mL (250-1100)
--- NOTE | 2019-02-27 16:41 | Internal Med Progress Note ---
Hospitalist Progress Note - Encounter Date of Encounter: 02/27/19 Time of Encounter: 10:45 - Subjective Interval History: Ms duckworth denies any further episode of hematemesis melena hematochezia. Of note EGD is today revealed gastric and duodenal ulcers as well as a Barbara Lora tear biopsies are pending. GEN: Denies fever, chills or malaise HEENT: Denies headache blurriness, or dysphagia RESP: Denies SOB or cough CV: Denies chest pain or palpitations GI: Denies Nausea, vomiting, diarrhea or constipation Reviewed current in hospital medications with modifications see orders Reviewed Routine labs - Exam Vitals: Temp Pulse Resp BP Pulse Ox 98.8 F 76 18 108/60 94 02/27/19 15:04 02/27/19 15:04 02/27/19 15:04 02/27/19 15:04 02/27/19 15:04 Exam: GEN: NAD, A&O x 3, Pleasant and conversant SKIN: brown but pale warm acyanotic not jaundice HEART: RRR, no murmurs LUNGS: CTA no wheeze or crackles, overall non labored ABDOMEN; Soft, non tender or distended, BS x 4 normactive EXT: No LE edema, Pedal pulses 1+, radial pulses 2+ PSYCH: Mood and affect is appropriate - Assessment and Plan (1) GI bleed Current Visit: Yes Status: Acute Assessment and Plan: Status post EGD which revealed Barbara-Lora tear at the GE junction, nonbleeding gastric ulcers and nonbleeding ulcer. Hemoglobin today is 7.9, a biopsy pending No for the episode of hematemesis, or melena, hemoglobin is stable 8.1 status post 3 units packed red blood cell vitals stable, we will make an by mouth after midnight Consult bull chain operator likely underlying diverticular bleed although with NSAID use by GI bleed from gastric ulcer is high on differentiatial. We will treat with Protonix IV twice a day monitor H&H and clinically correlate she had a colonoscopy in July 2018. She does admit to melena and coffee-ground emesis there is also concern for painless hematuria (2) Gastric ulcer Current Visit: Yes Status: Acute Assessment and Plan: Status post EGD history of chronic naproxen use biopsy pending rule out H. pylori and GI malignancy, discussed with patient regarding gastric ulcer to ref rain from any GI mucosa irritant including oral iron. If she needs further iron supplementation and will recommend outpatient iron transfusion of note she is currently being loaded with iron sucrose prior to discharge (3) Duodenal ulcer Current Visit: Yes Status: Acute Assessment and Plan: Status post EGD biopsy pending rule out H. pylori and gastric cancer, less likely ZES pt reports chronic NSAID use with naproxen (4) Barbara-Lora tear Current Visit: Yes Status: Acute Assessment and Plan: Likely the reason of her coffee-ground emesis status post EGD no further episodes, most likely from retching (5) Acute blood loss anemia Current Visit: Yes Status: Acute Assessment and Plan: Status post EGD which revealed gastric and duodenal ulcers as well as Barbara- Lora tear as aforementioned. hemoglobin 7.9 Status post 3 units hemoglobin is 8.1 patient denies any further episode of hematemesis melena or hematochezia hematuria. CT abdomen and pelvis was unremarkable patient will be evaluated by bull chain operator tomorrow Hemoglobin on presentation was 6.7 patient reports having coffee ground emesis, melenic stools as well as hematuria all day yesterday. Upon review of her prior labs hemoglobin on September 2018 was 12.2, she does have a history of diverticulosis in her entire colon based on colonoscopy from a July 2018 hence there might be elements acute on chronic blood loss for she is relatively stable with regard to her vitals and mentation. She has been ordered 2 units of packed red blood cells at the ED, trend H&H and stool Guaiac (6) LIVE (acute kidney injury) Current Visit: Yes Status: Acute Assessment and Plan: Likely prerenal from hypovolemia due to acute GI hemorrhage. Urinalysis revealed large blood, CPK ordered was normal no rhabdomyolysis resolved likely due to hypovolemia from her bleed, serum creatinine is 0.93 (7) Hypovolemia dehydration Current Visit: Yes Status: Acute Assessment and Plan: Secondary to acute blood loss she has currently been transfused 2 units of packed red blood cell will monitor on telemetry, she required additional unit of blood, now normotensive we will continue maintenance fluids (8) Diverticulosis Current Visit: Yes Status: Acute Assessment and Plan: This was evident in patient's history as well as recent colonoscopy from July 2018 diverticular bleed is high on the differential although she denies hematochezia (9) Painless hematuria Current Visit: Yes Status: Acute Assessment and Plan: UA revealed large blood with 5-15 RBCs. We will check CPK normal no rhabdo. Would also work patient up for painless hematuria with CT abdomen and pelvis a lso remarkable with no acute abdomen parenchyma abnormality no renal calculus OBSTRUCTION confirmed colonic diverticulosis (10) DVT prophylaxis Current Visit: Yes Status: Acute Assessment and Plan: SCDs concern for active bleed (11) Hepatic cyst Current Visit: Yes Status: Acute Assessment and Plan: Incidental finding on CT imaging of the abdomen and pelvis- Multiple hepatic low-attenuation lesions consistent with hepatic cysts are seen. For example, in the left hepatic lobe lateral segment, there is a 1.4 x 1.3 cm cyst. In the right hepatic lobe posteriorly, there is a 1.5 x 2.2 cm cyst. May need further evaluation as an outpatient (12) Iron deficiency anemia Current Visit: Yes Status: Acute Assessment and Plan: We will supplement with IV iron sucrose given a history of gastric ulcers not ideal candidate for oral iron supplementation, B12 and folate were supratherapeutic - Time Spent with Patient Total time spent is greater than 50% in coordination of care (as documented) at patient's floor/unit and/or counseling patient: Internal Medicine: Result - Labs CBC & Chem 7: 02/27/19 03:43 02/27/19 03:43 Labs: Short CBC 02/27/19 Range/Units 03:43 WBC 7.6 (4.3-11.1) K/mcL Hgb 7.9 L (11.5-15.4) g/dL Hct 23.4 L (35.3-44.9) % Plt Count 301 (140-400) K/mcL Neutrophils # 4.3 (1.6-8.9) K/mcL BMP 02/27/19 03:43 Sodium 142 Potassium 3.6 Chloride 113 H Carbon Dioxide 21 L BUN 12 Creatinine 0.93 Glucose 94 Calcium 7.8 L Consult Discharge Plan - Plan Referrals: Cynthia Severino, METAL SORTER [Primary Care Provider] - (1) GI bleed Qualifiers: GI bleed type/associated pathology: unspecified gastrointestinal hemorrhage type Qualified Code(s): K92.2 - Gastrointestinal hemorrhage, unspecified (12) Iron deficiency anemia Qualifiers: Iron deficiency anemia type: chronic blood loss Qualified Code(s): D50.0 - Iron deficiency anemia secondary to blood loss (chronic)
[2019-02-27] MEDS: Iron Sucrose Complex 250 MG in 0.9 % Sodium Chloride 250 ML IVPB SCH (18:21)
[2019-02-27] MEDS ORDERED: Loratadine 10 MG TABLET PO ONE (22:09)
[2019-02-28 06:39] LABS: Basophils % 0.5 %; Eosinophils # 0.2 K/mcL (0.0-0.6); Eosinophils % 1.9 %; Hematocrit 26.8 % (35.3-44.9); Hemoglobin 8.9 g/dL (11.5-15.4); Immature Granulocytes % 0.9 % (0-4); Lymphocytes # 1.7 K/mcL (0.6-4.6); Lymphocytes % 20.5 %; Mean Corpuscular HGB Conc 33.2 g/dL (31.6-35.5); Mean Corpuscular Hemoglobin 31.4 pg (28.0-33.3); Mean Corpuscular Volume 94.7 fL (83.0-100.0); Mean Platelet Volume 9.1 fL (9.4-12.4); Monocytes # 0.8 K/mcL (0.0-1.3); Monocytes % 9.8 %; Neutrophils # 5.6 K/mcL (1.6-8.9); Nucleated Red Blood Cells 0.4 /100 WBC (0); Platelet Count 348 K/mcL (140-400); Red Blood Count 2.83 M/mcL (3.82-4.97); Red Cell Distribution Width 14.2 % (11.5-14.5); Segmented Neutrophils % 66.4 %; White Blood Count 8.5 K/mcL (4.3-11.1)
[2019-02-28 07:01] LABS: BUN/Creatinine Ratio 10 (6-26); Blood Urea Nitrogen 10 mg/dL (8-23); Calcium 8.5 mg/dL (8.6-10.3); Carbon Dioxide 28 mEq/L (23-29); Chloride 109 mEq/L (98-107); Glucose 104 mg/dL (70-105); Magnesium 1.8 mg/dL (1.6-2.6); Osmolality,Calculated 295 (280-300); Potassium 3.8 mEq/L (3.5-5.1); Sodium 143 mEq/L (136-145); eGFR For African Americans > 60 (> 60); eGFR For Non-African Americans 55 (> 60)
[2019-02-28 07:02] VITALS: BP 123/56
[2019-02-28] MEDS: Gabapentin 300 MG CAPSULE PO SCH (08:41)
--- NOTE | 2019-02-28 09:45 | Discharge Summary ---
- NOTES TO OUTPATIENT PROVIDER Notes to Outpatient Provider: Came with the GI bleed, diagnised with the Barbara Lora tears and non bleeding ulcers. Hgb stable. PPI to be contnued. Follow up on pathology results please. BP tends to be low in hoptal. Will dc lisinopril. Continue HCTZ. If remains to be low, can be dcd. GOt 2 U of iron sucrose in the hospital. Will continue the oral iron on discharge. Orders not resulted at time of discharge: Pending orders 02/24/19 17:14 Stool guiac [Occult Blood,Stool] [BF] Routine 02/26/19 13:47 Surgical Pathology [PTH] Routine Date of Encounter: 02/28/19 Time of Encounter: 09:00 - Discharge Diagnosis (1) GI bleed Priority: Primary Status: Acute Qualifiers: GI bleed type/associated pathology: unspecified gastrointestinal hemorrhage type Qualified Code(s): K92.2 - Gastrointestinal hemorrhage, unspecified (2) Gastric ulcer Priority: Secondary Status: Acute Qualifiers: Gastric ulcer complication status: without hemorrhage or perforation Qualified Code(s): K25.7 - Chronic gastric ulcer without hemorrhage or perforation (3) Duodenal ulcer Priority: Secondary Status: Acute (4) Barbara-Lora tear Priority: Secondary Status: Acute (5) Acute blood loss anemia Priority: Secondary Status: Acute (6) LIVE (acute kidney injury) Priority: Secondary Status: Acute (7) Hypovolemia dehydration Priority: Secondary Status: Acute (8) Diverticulosis Priority: Secondary Status: Acute (9) Painless hematuria Priority: Secondary Status: Acute (10) DVT prophylaxis Priority: Secondary Status: Acute (11) Hepatic cyst Priority: Secondary Status: Acute (12) Iron deficiency anemia Priority: Secondary Status: Acute Qualifiers: Iron deficiency anemia type: chronic blood loss Qualified Code(s): D50.0 - Iron deficiency anemia secondary to blood loss (chronic) Hospital course: Ms. Casper is a 78 year old female with a past medical history significant for hypertension, rheumatoid arthritis, presented to the hospital because of coffee-ground emesis and melanotic stools. She also had acute blood loss anemia. GI was consulted, patient had endoscopy. It showed Barbara-Lora tear at GE junction, nonbleeding gastric ulcers with no stigmata of bleeding. Patient is advised to avoid NSAIDs. Continue the patient on PPI twice a day for 2 weeks, then daily for almost 2 weeks. Patient advised to follow up with her PCP and the fabricator artificial breast as an outpatient. Advised to avoid the spicy food and NSAIDs. She was also transfused with 3 units of RBCs. Her most is that hemoglobin is 8.5, has been stable. Patient denies any acute bleeding. No melena or masses overnight. SHe has been feeling good. Patient blood pressure was low when she presented to the hospital. It has been stable for the past few days. She is currently on lisinopril and hydroch lorothiazide as an outpatient. Stopping the lisinopril at this point, continue hydrochlorothiazide considering marginally low blood pressure. Advised to follow with the PCP and discuss further options with her. Lab work shows a ferritin of 16. She was given iron sucrose in the hospital. Starting the patient on ferrous sulfate 1 tablet daily. Patient is advised to follow-up with a fabricator artificial breast and PCP and also discussed the pathology results. She is being discharged in stable condition - Time Spent with Patient Total time spent providing and/or coordinating discharge services: 35 minutes - Discharge Medications Prescriptions: New Ferrous Sulfate 325 mg PO DAILY #30 tablet Polyethylene Glycol 3350 [MiraLAX] 17 gm PO DAILY powd.pack Omeprazole [PriLOSEC] 20 mg PO BIDAC 30 Days #60 capsule. Continued Gabapentin [Neurontin] 300 mg PO QID hydroCHLOROthiazide [Hydrochlorothiazide] 25 mg PO DAILY Tizanidine HCl 2 mg PO TID PRN PRN Reason: Spasms Discontinued Naproxen [EC-Naproxen] 500 mg PO Q12HR Lisinopril [Zestril] 10 mg PO DAILY Home Medications: Gabapentin [Neurontin] 300 mg PO QID 02/24/19 [History] Tizanidine HCl 2 mg PO TID PRN 02/24/19 [History] hydroCHLOROthiazide [Hydrochlorothiazide] 25 mg PO DAILY 02/24/19 [History] Ferrous Sulfate 325 mg PO DAILY #30 tablet 02/28/19 [Rx] Omeprazole [PriLOSEC] 20 mg PO BIDAC 30 Days #60 capsule. 02/28/19 [Rx] Polyethylene Glycol 3350 [MiraLAX] 17 gm PO DAILY powd.pack 02/28/19 [Rx] Allergies/Adverse Reactions: Allergy/AdvReac Type Severity Reaction Status Date / Time No Known Allergies Allergy Verified 09/12/17 13:58 Date of admission: 02/25/19 19:11 Primary care physician: Cynthia Severino CNP Consults: 02/25/19 17:35 Consult to Gastroenterology [CONS] Routine Consulting Provider: [facility] Reason for Consult: Acute blood loss anemia concern for GI bleed history of diverticulosis. Patient will be made nothing by mouth after midnight Call Completed: No - Constitutional Vitals: Temp Pulse Resp BP Pulse Ox 98.7 F 66 15 123/56 94 02/28/19 07:01 02/28/19 07:01 02/28/19 07:01 02/28/19 07:01 02/28/19 07:01 Exam: General: Alert and oriented, no physical distress, able to follow commands. HEENT: No thyromegaly, no lymphadenopathy, no discharge. Eyes: No discharge. Normal conjuctiva, no icterus Respiratory: Normal vesicular breathing, no added sounds, breathing equal in both sides. CVS: Normal heart sounds, no murmurs, regular rhthm, no edema Extremities: No peripheral edema, peripheral pulses intact. Lymph nodes: No lymphadenopathy Gastrointestinal: Soft, nontender abdomen, normal abdominal sounds. No distention noted. Genitourinary: No paravertebral tenderness. Skin: No rash, ulcers or wound. Neurological: Alert and oriented. No focal deficits. Cranial nerves II-XII intact. - Patient Status Disposition: Home, Self-Care Condition: Fair - Discharge Instructions Follow Up With: Cynthia Severino CNP [Primary Care Provider] - Additional Instructions: Avoid Nsaids and spicy food. COntinue PPI Follow up wiht the PCP nad fabricator artificial breast for the discussion of the pathology results.
[2019-02-28] MEDS ORDERED: FLU Vac QV 19-20 (6Month+)/PF 0.5 ML SYRINGE IM ONE (11:40)
== END 2019-02-28 14:42 | disposition home or self-care (01) | DRG 369 ==
LOC: EMEROOARM 12:35 → 3ANU 12:35 → SUATTDRO 15:37 → 3ANU 15:50 → SUATTDRO 02-25 19:11
PROVIDERS: ADMIT Pharmacist; ATTEND Internal Medicine
PROC: ENDOEBX (2019-02-26 13:00)